=== PATIENT | male | born 1985 | race American Indian/Alaskan Native ===

== ENCOUNTER 2017-04-05 16:15 | Emergency (ER) | payer OTHER ==
[2017-04-05] MEDS ORDERED: Sodium Chloride 0.9% 1,000 ML IV ONE ×3 (16:56→20:54)
--- NOTE | 2017-04-05 16:56 | C.PDOC ---
History Of Present Illness Patient is a 31 y/o male, whose PMHx includes gastritis, that presents to the ED for evaluation of burning epigastric abdominal pain associated with nausea, vomiting, and mild diarrhea since this morning. Pt states he was unable to tolerate PO intake. Patient states he was taking medications for his gastritis in the past, but is not taking those meds currently. Otherwise, denies any fever , chills, or any other associated symptoms at this time. Time Seen by Provider: 04/05/17 16:51 Chief Complaint (Nursing): Abdominal Pain History Per: Patient History/Exam Limitations: no limitations Onset/Duration Of Symptoms: Hrs Current Symptoms Are (Timing): Still Present Location Of Pain/Discomfort: Epigastric Radiation Of Pain To:: None Quality Of Discomfort: Burning, "Pain" Associated Symptoms: Nausea, Vomiting, Diarrhea (mild). denies: Fever, Chills, Loss Of Appetite, Back Pain, Chest Pain, Constipation, Urinary Symptoms Exacerbating Factors: None Alleviating Factors: None Recent travel outside of the [place]: No Additional History Per: Patient Past Medical History Reviewed: Historical Data, Nursing Documentation, Vital Signs Vital Signs: Last Vital Signs Temp 98.2 F 04/05/17 16:22 Pulse 63 04/05/17 16:22 Resp 18 04/05/17 16:22 BP 124/62 04/05/17 16:22 Pulse Ox 100 04/05/17 22:47 - Medical History PMH: Arthritis, Gastritis Family History: States: No Known Family Hx - Social History Hx Tobacco Use: No Hx Alcohol Use: No Hx Substance Use: No - Immunization History Hx Tetanus Toxoid Vaccination: No Hx Influenza Vaccination: No Hx Pneumococcal Vaccination: No Review Of Systems Except As Marked, All Systems Reviewed And Found Negative. Constitutional: Negative for: Fever, Chills Cardiovascular: Negative for: Chest Pain, Palpitations Respiratory: Negative for: Shortness of Breath Gastrointestinal: Positive for: Nausea, Vomiting, Abdominal Pain, Diarrhea. Negative for: Constipation, Hematochezia, Hematemesis Genitourinary: Negative for: Dysuria, Frequency, Incontinence, Hematuria Musculoskeletal: Negative for: Back Pain Physical Exam - Physical Exam Appears: Non-toxic, In Acute Distress (lying in position on stretcher) Skin: Normal Color, Warm, Dry Head: Atraumatic, Normacephalic Eye(s): bilateral: Normal Inspection, EOMI Oral Mucosa: Moist Neck: Normal ROM, Supple Chest: Symmetrical, No Tenderness Cardiovascular: Rhythm Regular, No Murmur Respiratory: Normal Breath Sounds, No Rales, No Rhonchi, No Wheezing Gastrointestinal/Abdominal: Soft, Tenderness (epigastric), Guarding, No Rebound Extremity: Normal ROM, No Deformity Neurological/Psych: Oriented x3, Normal Speech, Normal Cognition ED Course And Treatment - Laboratory Results Result Diagrams: 04/05/17 17:21 04/05/17 17:21 Lab Interpretation: Abnormal Interpretation Of Abnormal: WBC 11.1, BUN 30 O2 Sat by Pulse Oximetry: 100 (on RA) Pulse Ox Interpretation: Normal - CT Scan/US CT Abd/Pel w/ iv contrast Other Rad Studies (CT/US): Interpreted By Me, Read By Radiologist CT/US Interpretation: EXAM: CT Abdomen and Pelvis With Intravenous Contrast. CLINICAL HISTORY: 31 years old, male; Pain; Abdominal pain; Epigastric. TECHNIQUE: Axial computed tomography images of the abdomen and pelvis with intravenous contrast. This CT. exam was performed using one or more of the following dose reduction techniques: automated. exposure control, adjustment of the mA and/or kV according to patient size, and/or use of iterative. reconstruction technique. Coronal and sagittal reformatted images were created and reviewed. CONTRAST: 100 mL of [id number] administered intravenously. COMPARISON: No relevant prior studies available. FINDINGS: Lower thorax: The bilateral lung bases are clear. ABDOMEN: Liver: The liver is enlarged, and of decreased attenuation. Gallbladder and bile ducts: The gallbladder is only minimally distended, without calcified stones. Trace pericholecystic fluid is suggested on the current imaging, possibly artifactual for which. dedicated ultrasound is suggested. No significant intra- or extrahepatic biliary ductal dilation. Pancreas: Enhances homogeneously. No ductal dilation. No discrete mass. Spleen: No acute findings. Adrenals: No acute findings. Kidneys and ureters: No acute findings. No hydronephrosis or renal calculi. No discrete solid mass. PELVIS: Bladder: No acute findings. Reproductive: No acute findings. Appendix: The air filled appendix is of normal caliber (series 3, image 94; series 601, image 61) . ABDOMEN and PELVIS: Stomach and bowel: No obstruction. No mucosal thickening. Peritoneum: No significant fluid collection. No free air. Lymph nodes: No pathologically enlarged lymph nodes. Vasculature: Unremarkable. Bones: No acute fracture. IMPRESSION: Fatty infiltration of an enlarged liver. Trace pericholecystic fluid is suggested on the current imaging, possibly artifactual for which. dedicated ultrasound is suggested. Progress Note: Labs ordered and reviewed. Patient was given Pepcid, Pantoprazole , Zofran, and IV fluids. 7:00 Patient still c/o epigastric pain. Additional fluids and Reglan and Bentyl ordered. 8:30 Patient still c/o epigastric pain. CT Abdomen and pelvis ordered. Treated with Donnatol and Maalox. Reevaluation Time: 22:59 Reassessment Condition: Improved Disposition Counseled Patient/Family Regarding: Studies Performed, Diagnosis, Need For Followup, Rx Given - Disposition Referrals: [facility] [Outside] Disposition: HOME/ ROUTINE Disposition Time: 23:02 Condition: IMPROVED Additional Instructions: Keep your diet bland. Prescriptions: Famotidine [Pepcid] 20 mg PO BID #60 tab Pantoprazole Sodium [Protonix] 40 mg PO DAILY #30 ect Instructions: Gastritis (ED) Forms: Work Excuse - Clinical Impression Clinical Impression: Gastritis - Scribe Statement The provider has reviewed the documentation as recorded by the Yasmineibe Alejandro Salazar All medical record entries made by the Yasmineibnury were at my direction and personally dictated by me. I have reviewed the chart and agree that the record accurately reflects my personal performance of the history, physical exam, medical decision making, and the department course for this patient. I have also personally directed, reviewed, and agree with the discharge instructions and disposition.
[2017-04-05 17:24] LABS: BASO % 0.4 % (0.0-2.0); EOS % 0.1 % (0.0-4.0); HEMATOCRIT 45.7 % (35.0-51.0); LYMPH # 0.4 K/uL (1.0-4.3); LYMPH % 3.8 % (20.0-40.0); MEAN CELL VOLUME 85.2 fL (80.0-94.0); MEAN CORPUSCULAR HEMOGLOBIN 27.9 pg (27.0-31.0); MEAN CORPUSCULAR HGB CONC 32.7 g/dL (33.0-37.0); MEAN PLATELET VOLUME 7.6 fL (7.2-11.7); MONO # 0.1 K/uL (0.0-0.8); MONO % 1.3 % (0.0-10.0); NRBC % 0.1 % (0.0-2.0); PLATELET COUNT 297 K/uL (130-400); RED CELL DISTRIBUTION WIDTH 13.6 % (11.5-14.5); WHITE BLOOD COUNT 11.7 K/uL (4.8-10.8)
[2017-04-05] MEDS ORDERED: Pantoprazole 40 mg EC Tab PO STA (17:30)
[2017-04-05 17:32] LABS: CHLORIDE 103 mmol/L (98-107); POTASSIUM 4.2 mmol/L (3.6-5.2); SODIUM 141 mmol/L (132-148)
[2017-04-05] MEDS ORDERED: Pantoprazole 40 mg EC Tab PO ONE (17:33)
[2017-04-05 17:34] LABS: ALB/GLOB RATIO 1.1 (1.0-2.1); ALKALINE PHOSPHATASE 50 U/L (38-126); AST/SGOT 23 U/L (17-59); BILIRUBIN,TOTAL 0.9 mg/dL (0.2-1.3); CARBON DIOXIDE 22 mmol/L (22-30); GFR AFRICAN-AMERICAN > 60; TOTAL PROTEIN 8.8 g/dL (6.3-8.3)
[2017-04-05 17:35] LABS: ALT/SGPT 36 U/L (21-72); BLOOD UREA NITROGEN 30 mg/dL (9-20); GLUCOSE,RANDOM 122 mg/dL (75-110)
[2017-04-05 18:14] LABS: NEUTROPHIL 94 % (50-75); TOTAL CELLS COUNTED 100
[2017-04-05] MEDS ORDERED: Iohexol 240 (50 ml) PO ONE (20:30)
[2017-04-05] MEDS ORDERED: Alum-Mag Hydrox-Simethicone Susp (30 mL) PO STA (20:30)
[2017-04-05] MEDS ORDERED: Belladonna-Phenobarbital PO STA (20:31)
[2017-04-05] MEDS ORDERED: Iohexol 240 (50 ml) ONE (20:34)
[2017-04-05] MEDS ORDERED: Alum-Mag Hydrox-Simethicone Susp (30 mL) ONE (20:34)
[2017-04-05] MEDS ORDERED: Belladonna-Phenobarbital ONE (20:35)
[2017-04-05 20:42] LABS: RBC URINE 3 /hpf (0-3); URINE BILIRUBIN NEGATIVE (NEGATIVE); URINE BLOOD NEGATIVE (NEGATIVE); URINE COLOR Yellow (YELLOW); URINE GLUCOSE (UA) NORMAL (Normal); URINE KETONE 2+ mg/dL (NEGATIVE); URINE LEUKOCYTE ESTERASE NEG Leu/uL (Negative); URINE PROTEIN 1+ mg/dL (NEGATIVE); URINE UROBILINOGEN NORMAL mg/dL (0.2-1.0); WBC URINE 1 /hpf (0-5)
[2017-04-06 00:54] VITALS: BP 100/57; PULSE 94; RESP 20; TEMP 99; O2SAT 96
--- NOTE | 2017-04-06 09:41 | CT ---
PROCEDURE: CT Abdomen and Pelvis with contrast HISTORY: abdominal pain COMPARISON: None. TECHNIQUE: Contrast dose: 100 mL Visipaque 320 Radiation dose: Total exam DLP = 398.60 mGy-cm. This CT exam was performed using one or more of the following dose reduction techniques: Automated exposure control, adjustment of the mA and/or kV according to patient size, and/or use of iterative reconstruction technique. FINDINGS: LOWER THORAX: Unremarkable. LIVER: Normal size and contour. Relative hepatic attenuation cannot be accurately determined on early phase contrast-enhanced images. No mass. No biliary dilatation. GALLBLADDER AND BILE DUCTS: No calcified gallstones. Mild pericholecystic fluid, nonspecific. No mural thickening. PANCREAS: Unremarkable. No gross lesion or ductal dilatation. SPLEEN: Unremarkable. ADRENALS: Unremarkable. No mass. KIDNEYS AND URETERS: Unremarkable. No hydronephrosis. No solid mass. VASCULATURE: Unremarkable. No aortic aneurysm. BOWEL: Unremarkable. No obstruction. No gross mural thickening. APPENDIX: Normal appendix. PERITONEUM: Unremarkable. No free fluid. No free air. LYMPH NODES: Unremarkable. No enlarged lymph nodes. BLADDER: Unremarkable. REPRODUCTIVE: Normal prostate BONES: No acute fracture. OTHER FINDINGS: None. IMPRESSION: Mild pericholecystic fluid, nonspecific. Clinically appropriate consider evaluation with ultrasound examination of the abdomen. The remainder of the examination is unremarkable. Preliminary interpretation of this examination was reported by [email or web address] at 10:34 p.m. on 04/05/2017. There is concurrence of this report with the preliminary interpretation.
== END 2017-04-05 23:50 | disposition home or self-care (01) ==
LOC: C.ER 16:15
DX: K29.70 Gastritis, unspecified, without bleeding (principal)
CPT/HCPCS: 74177; 80053; 81001; 83690; 85025; 96361; 96365; 96372; 96375; 96376; 99285; J0500; J2405; J2765; J7040; Q9966

== ENCOUNTER 2017-04-07 12:24 | Emergency (ER) | payer OTHER ==
[2017-04-07 12:35] VITALS: O2SAT 100; BMI 24.4
[2017-04-07] MEDS ORDERED: Sodium Chloride 0.9% 1,000 ML IV ONE (12:50)
[2017-04-07] MEDS ORDERED: Sodium Chloride 0.9% 1,000 ML ONE (13:06)
[2017-04-07 13:17] LABS: BASO % 0.6 % (0.0-2.0); EOS % 0.1 % (0.0-4.0); HEMOGLOBIN 14.8 g/dL (12.0-18.0); LYMPH # 0.9 K/uL (1.0-4.3); LYMPH % 13.2 % (20.0-40.0); MEAN CELL VOLUME 85.8 fL (80.0-94.0); MEAN CORPUSCULAR HEMOGLOBIN 28.5 pg (27.0-31.0); MEAN CORPUSCULAR HGB CONC 33.3 g/dL (33.0-37.0); MEAN PLATELET VOLUME 7.9 fL (7.2-11.7); MONO # 0.3 K/uL (0.0-0.8); MONO % 3.6 % (0.0-10.0); NEUT # 5.8 K/uL (1.8-7.0); NEUT % 82.5 % (50.0-75.0); RBC 5.2 Mil/uL (4.40-5.90); RED CELL DISTRIBUTION WIDTH 13.6 % (11.5-14.5)
[2017-04-07 13:25] LABS: ALBUMIN 4.5 g/dL (3.5-5.0)
[2017-04-07 13:28] LABS: ALB/GLOB RATIO 1.1 (1.0-2.1); ALT/SGPT 32 U/L (21-72); AST/SGOT 43 U/L (17-59); BLOOD UREA NITROGEN 20 mg/dL (9-20); GFR AFRICAN-AMERICAN > 60; GFR NON-AFRICAN AMERICAN > 60
[2017-04-07 13:29] LABS: CALCIUM 9.6 mg/dl (8.6-10.4); LIPASE 76 U/L (23-300)
--- NOTE | 2017-04-07 13:29 | RAD ---
PROCEDURE: Radiographs of the chest and abdomen (obstructive series) HISTORY: abd pain COMPARISON: Comparison made with CT scan of the abdomen and pelvis 04/05/2017 TECHNIQUE: AP radiograph of the chest, with upright and supine radiographs of the abdomen. FINDINGS: CHEST: Lungs: Clear. Cardiovascular: Normal size heart. No pulmonary vascular congestion. Pleura: No pleural fluid. No pneumothorax. Other findings: None. ABDOMEN AND PELVIS: No gross free intraperitoneal air seen under the diaphragmatic surfaces. No evidence of acute mechanical bowel obstruction. Residual contrast material seen throughout the large bowel. IMPRESSION: Unremarkable radiographs of chest and abdomen. No evidence of mechanical bowel obstruction.
--- NOTE | 2017-04-07 13:29 | C.PDOC ---
History Of Present Illness 31 yr old male presents to the ER with complaints of epigastirc pain for the past 3 days, associated with nausea, vomiting and diarrhea. Prior records were reviewed which shows patient was seen April 05 for similar complaints and was diagnosed with gastritis. Patient denies chest pain, SOB, dysuria or incontinence. Time Seen by Provider: 04/07/17 12:47 Chief Complaint (Nursing): Abdominal Pain History Per: Patient History/Exam Limitations: no limitations Onset/Duration Of Symptoms: Days (3) Current Symptoms Are (Timing): Still Present Location Of Pain/Discomfort: Epigastric Past Medical History Reviewed: Historical Data, Nursing Documentation, Vital Signs Vital Signs: Last Vital Signs Temp 98.1 F 04/07/17 12:35 Pulse 60 04/07/17 12:35 Resp 20 04/07/17 12:35 BP 124/72 04/07/17 12:35 Pulse Ox 100 04/07/17 14:50 - Medical History PMH: Arthritis, Gastritis Family History: States: No Known Family Hx - Social History Hx Tobacco Use: No Hx Alcohol Use: No Hx Substance Use: Yes - Immunization History Hx Tetanus Toxoid Vaccination: No Hx Influenza Vaccination: No Hx Pneumococcal Vaccination: No Review Of Systems Except As Marked, All Systems Reviewed And Found Negative. Cardiovascular: Negative for: Chest Pain Respiratory: Negative for: Shortness of Breath Gastrointestinal: Positive for: Nausea, Vomiting, Abdominal Pain (Epigastric ), Diarrhea Genitourinary: Negative for: Dysuria, Incontinence Physical Exam - Physical Exam Appears: Non-toxic, In Acute Distress (Moderate ) Skin: Warm, Dry, No Rash Head: Atraumatic, Normacephalic Oral Mucosa: Moist Throat: Normal, No Erythema, No Exudate Chest: Symmetrical, No Tenderness Cardiovascular: Rhythm Regular, No Murmur Respiratory: Normal Breath Sounds, No Rales, No Rhonchi, No Stridor, No Wheezing Gastrointestinal/Abdominal: Soft, Tenderness (Epigastric ), No Guarding, No Rebound Extremity: Normal ROM, No Swelling Neurological/Psych: Oriented x3, Normal Speech, Normal Motor ED Course And Treatment - Laboratory Results Result Diagrams: 04/07/17 13:14 04/07/17 13:14 Lab Interpretation: Normal O2 Sat by Pulse Oximetry: 100 - Radiology CXR: Interpreted by [place] CXR Interpretation: Yes: No Acute Disease - Other Rad X-Ray - Obstructive Series X-Ray: Viewed By Me, Read By Radiologist Interpretation: IMPRESSION: Unremarkable radiographs of chest and abdomen. No evidence of mechanical bowel obstruction. - CT Scan/US US - Gall Bladder Other Rad Studies (CT/US): Read By Radiologist, Radiology Report Reviewed CT/US Interpretation: Right upper quadrant ultrasound dated 04/07/2017. History : Epigastric pain. The liver exhibits normal size measuring 15.3 cm in CC dimension. Liver demonstrates smooth contour and normal echotexture without mass collection or calcification. Gallbladder is physiologically distended. No evidence of intraluminal gallbladder calculi. Small amount pericholecystic fluid is felt to be present however no sonographic Rosenthal sign. Common bile duct measures approximately 3 mm. Visualized portions the pancreas unremarkable. Right kidney measures approximately 11.4 x 4.1 x 5.1 cm. No evidence of shadowing calculi or hydronephrosis. No renal mass or collection. Spleen and left kidney not evaluated on this limited exam. Impression: No evidence of cholelithiasis however there does appear to be a cyst small amount of pericholecystic fluid nonspecific. No sonographic Rosenthal sign. No evidence of intra or extrahepatic biliary ductal dilatation. Reevaluation Time: 14:49 Reassessment Condition: Improved Medical Decision Making Medical Decision Making: PLAN: * X-Ray - Obstructive Series * US - Gall Bladder * Drug Screen * CBC * CMP * Urinalysis * Pepcid IVP * Toradol IVP * Zofran IVP * Sodium Chloride IV 1500: normal gb, labs, belly films suspect (again) gastritis worstened by drinking soda with n/v PPI Q12H and Maalox 5x/day educated and opt f/u. no alarm signs to indicated inpt eval. Disposition Doctor Will See Patient In The: Office Counseled Patient/Family Regarding: Studies Performed, Diagnosis - Disposition Disposition: HOME/ ROUTINE Disposition Time: 14:50 Condition: GOOD - Clinical Impression Clinical Impression: Abdominal pain, Gastritis - Scribe Statement The provider has reviewed the documentation as recorded by the Andreas Ch Provider Attestation: All medical record entries made by the Andreas were at my direction and personally dictated by me. I have reviewed the chart and agree that the record accurately reflects my personal performance of the history, physical exam, medical decision making, and the department course for this patient. I have also personally directed, reviewed, and agree with the discharge instructions and disposition.
--- NOTE | 2017-04-07 14:41 | US ---
Right upper quadrant ultrasound dated 04/07/2017. History: Epigastric pain. The liver exhibits normal size measuring 15.3 cm in CC dimension. Liver demonstrates smooth contour and normal echotexture without mass collection or calcification. Gallbladder is physiologically distended. No evidence of intraluminal gallbladder calculi. Small amount pericholecystic fluid is felt to be present however no sonographic Rosenthal sign. Common bile duct measures approximately 3 mm. Visualized portions the pancreas unremarkable. Right kidney measures approximately 11.4 x 4.1 x 5.1 cm. No evidence of shadowing calculi or hydronephrosis. No renal mass or collection. Spleen and left kidney not evaluated on this limited exam Impression: No evidence of cholelithiasis however there does appear to be a cyst small amount of pericholecystic fluid nonspecific. No sonographic Rosenthal sign. No evidence of intra or extrahepatic biliary ductal dilatation.
[2017-04-07] MEDS ORDERED: Aluminum Hydroxide/Magnesium Hydroxide Susp (30 mL) ONE (14:55)
[2017-04-07] MEDS ORDERED: Aluminum Hydroxide/Magnesium Hydroxide Susp (30 mL) PO STA (14:56)
[2017-04-07 14:58] VITALS: BP 130/80; PULSE 65; RESP 14; TEMP 98.2
== END 2017-04-07 15:04 | disposition home or self-care (01) ==
LOC: C.ER 12:24
DX: K29.70 Gastritis, unspecified, without bleeding (principal); R10.13 Epigastric pain
CPT/HCPCS: 74022; 76705; 80053; 83690; 85025; 96361; 96374; 96375; 99284; J1885; J2405; J7040